=== PATIENT | female | born 1960 | race Caucasian/White ===

== ENCOUNTER 2024-08-14 06:24 | Day surgery (SDC) | payer MEDICARE, BC ==
[~2024-08-14] VITALS: Ht 165.1 cm; Wt 164.2 kg
[~2024-08-14 06:24] MED LIST: AMIT25 PO; ANTIBIOTIC PO; ATORVASTATIN CA20 MG PO; DIAZ5 PO; MECL25 PO; METHI10 PO; OMEP20ER PO; ONDA4 PO; ONDA4ODT MM; TRAM50 PO; TRAZ150T57 PO; TRAZ50 PO
[2024-08-14] MEDS ORDERED: CeFAZolin Sodium 2,000 MG VIAL ONE (06:33)
[2024-08-14] MEDS ORDERED: NS 50 ML IV ONE (06:35)
[2024-08-14] MEDS ORDERED: ASPI81CH (07:00)
[2024-08-14] MEDS ORDERED: MONT10T (07:00)
[2024-08-14] MEDS ORDERED: PRAZ2 (07:00)
[2024-08-14] MEDS ORDERED: Midazolam HCl 1MG / ML 2ML Vial ONE (07:04)
[2024-08-14] MEDS ORDERED: FentaNYL Citrate 50 MCG/ML 2 ML Injection ONE (07:04)
[2024-08-14] MEDS ORDERED: propofoL 20 ML IV ONE (07:04)
[2024-08-14] MEDS ORDERED: Lactated Ringer's 1,000 ML IV ONE ×2 (07:15→08:00)
--- NOTE | 2024-08-14 07:19 | NUR ---
08/14/24 0719 Alison Manley 0.15ML OF EPI (1MG/ML) ADDED TO 0.5% BUPIVACAINE (150MG/30ML) TO MAKE BUPIVACAINE 0.5% WITH EPI 1:200,000 ON FILED
[2024-08-14] MEDS ORDERED: Bupivacaine 0.5% HCl 5 MG/ML 30MLVIAL INJ ONE (07:39)
[2024-08-14] MEDS ORDERED: EPINEPhrine HCl 1 MG/ML 1ML Amp XX ONE (07:40)
[2024-08-14] MEDS ORDERED: Dexamethasone Sod Phos 10 MG/ML 1ML VIAL ONE (07:51)
[2024-08-14] MEDS ORDERED: Ondansetron HCl 2 MG / ML 2ML Vial ONE (07:51)
[2024-08-14] MEDS ORDERED: Ketorolac Tromethamine 30mg Vial ONE (07:51)
[2024-08-14 08:24] VITALS: BP 116/71
[2024-08-14] MEDS ORDERED: TraMADol HCl 50 MG Tab ONE (09:22)
--- NOTE | 2024-08-14 09:47 | NUR ---
08/14/24 0947 Jarret Toyn PT DENIED CP, SOB, DIZZINESS, NAUSEA, AND OTHER CARDIAC SYMPTOMS. NONE WERE OBSERVED. SHE STATES RESTING HR NORMALLY IN 40'S. BASELINE B/P 110'S/60'S. PT REPORTED TOLERABLE 4/10 PAIN UPON D/C. SHE DENIED NAUSEA AND EXPRESSED READINESS TO RETURN HOME.
== END 2024-08-14 09:47 | disposition home or self-care (01) ==
LOC: ORSCSDS 06:24
PROVIDERS: Podiatrist Foot & Ankle Surgery
PROC: 0JBR0ZZ Excision of Left Foot Subcutaneous Tissue and Fascia, Open Approach (ICD-10-PCS; principal; 2024-08-14 07:30)
DX: D17.39 Benign lipomatous neoplasm of skin and subcutaneous tissue of other sites (principal); E78.5 Hyperlipidemia, unspecified; E03.9 Hypothyroidism, unspecified; Z79.82 Long term (current) use of aspirin; Z79.899 Other long term (current) drug therapy
CPT/HCPCS: A9270; J0171; J0690; J1100; J1885; J2250; J2405; J2704; J3010

== ENCOUNTER 2024-11-13 09:41 | Day surgery (SDC) | payer MEDICARE, BC ==
[~2024-11-13] VITALS: Ht 165.1 cm; Wt 74.7 kg
[~2024-11-13 09:41] MED LIST changes: +ASPI81CH; +Bupivacaine 0.5% W/EPI 1:200000 SDV 30 ML Vial ONE; +Lactated Ringer's 1,000 ML IV ONE; +MONT10T; +PRAZ2
[2024-11-13] MEDS ORDERED: CeFAZolin Sodium 2,000 MG VIAL ONE (10:02)
[2024-11-13] MEDS ORDERED: ONDA4ODT (10:29)
[2024-11-13] MEDS ORDERED: Lactated Ringer's 1,000 ML IV ONE (10:30)
[2024-11-13] MEDS ORDERED: ALBU90OI INH (10:32)
[2024-11-13] MEDS ORDERED: Midazolam HCl 1MG / ML 2ML Vial ONE (12:08)
[2024-11-13] MEDS ORDERED: FentaNYL Citrate 50 MCG/ML 2 ML Injection ONE (12:08)
[2024-11-13] MEDS ORDERED: propofoL 20 ML IV ONE (12:08)
[2024-11-13] MEDS ORDERED: Ondansetron HCl 2 MG / ML 2ML Vial ONE (12:47)
[2024-11-13] MEDS ORDERED: Dexamethasone Sod Phos 10 MG/ML 1ML VIAL ONE (12:47)
[2024-11-13 13:10] VITALS: BP 116/61
--- NOTE | 2024-11-13 13:33 | NUR ---
11/13/24 5493 Miguel Mojica DENIES PAIN CURRENTLY, TOLERATING FOOD AND FLUIDS. MIGUEL PRESENT FOR DISCHARGE INSTRUCTIONS
== END 2024-11-13 13:40 | disposition home or self-care (01) ==
LOC: ORSCSDS 09:41
PROVIDERS: Podiatrist Foot & Ankle Surgery
PROC: 0JBN0ZZ Excision of Right Lower Leg Subcutaneous Tissue and Fascia, Open Approach (ICD-10-PCS; principal; 2024-11-13 11:00)
DX: D17.9 Benign lipomatous neoplasm, unspecified (principal); E05.00 Thyrotoxicosis with diffuse goiter without thyrotoxic crisis or storm; E78.5 Hyperlipidemia, unspecified; Z79.82 Long term (current) use of aspirin; J45.909 Unspecified asthma, uncomplicated; Z79.899 Other long term (current) drug therapy
CPT/HCPCS: J0690; J1100; J2250; J2405; J2704; J3010; J7120

== ENCOUNTER 2024-11-17 12:15 | Emergency (ER) | payer MEDICARE, BC ==
[~2024-11-17] VITALS: Ht 165.1 cm; Wt 72.6 kg
[~2024-11-17 12:15] MED LIST changes: +ALBU90OI INH; -Bupivacaine 0.5% W/EPI 1:200000 SDV 30 ML Vial ONE; -Lactated Ringer's 1,000 ML IV ONE; +ONDA4ODT
[2024-11-17 12:57] LABS: BASOPHILS ABSOLUTE AUTO 0.05 K/mm3 (0.00-0.23); BASOPHILS PERCENT AUTO 1 % (0-2); EOSINOPHILS ABSOLUTE AUTO 0.01 K/mm3 (0.00-0.68); EOSINOPHILS PERCENT AUTO 0 % (0-6); Hematocrit 38.3 % (33.0-51.0); Hemoglobin 13.2 g/dL (11.5-16.0); IMMATURE GRAN ABSOLUTE AUTO 0.05 K/mm3 (0.00-0.10); IMMATURE GRAN PERCENT AUTO 1 % (0-1); LYMPHOCYTES ABSOLUTE AUTO 2.35 K/mm3 (0.84-5.20); LYMPHOCYTES PERCENT AUTO 22 % (21-46); MONOCYTES ABSOLUTE AUTO 1.31 K/mm3 (0.16-1.47); MONOCYTES PERCENT AUTO 12 % (4-13); Mean Corpuscular HGB 31.5 pg (26.0-34.0); Mean Corpuscular HGB Conc 34.5 g/dL (31.5-36.5); Mean Corpuscular Volume 91 fL (80-100); Mean Platelet Volume 11.4 fL (9.1-12.4); NEUTROPHILS ABSOLUTE AUTO 7.05 K/mm3 (1.96-9.15); NEUTROPHILS PERCENT AUTO 65 % (41-73); Platelet Count 214 K/mm3 (150-400); RDW Coefficient Variation 12.4 % (11.7-14.2); RDW Standard Deviation 41.3 fL (35.1-46.3); Red Blood Cell Count 4.19 M/mm3 (3.80-5.20); White Blood Cell Count 10.82 K/mm3 (4.00-11.30)
[2024-11-17 13:19] LABS: Albumin, Blood 3.8 g/dL (3.4-5.0); Bilirubin, Total 1.1 mg/dL (0.1-1.0); Bun/Creatinine Ratio 13.9 (12.0-20.0); Calcium, Blood 9.2 mg/dL (8.5-10.1); Creatinine, Blood 0.79 mg/dL (0.40-1.00); Globulin, Blood 3.8 g/dL (2.2-4.0); Potassium, Blood 3.6 mmol/L (3.5-5.5); Total Protein, Blood 7.6 g/dL (6.4-8.2)
[2024-11-17] MEDS ORDERED: Ketorolac Tromethamine 30mg Vial IV ONE (14:15)
[2024-11-17] MEDS ORDERED: Rivaroxaban 10 MG Tab PO ONE (16:25)
[2024-11-17] MEDS ORDERED: XARELTO20 MG PO (16:27)
[2024-11-17 16:45] VITALS: BP 118/65
== END 2024-11-17 17:16 | disposition home or self-care (01) ==
LOC: ER 12:15
PROVIDERS: Student in an Organized Health Care Education/Training Program
DX: I26.99 Other pulmonary embolism without acute cor pulmonale (principal); Z88.8 Allergy status to other drugs, medicaments and biological substances; Z79.899 Other long term (current) drug therapy; Z79.82 Long term (current) use of aspirin
CPT/HCPCS: 71046; 71260; 80053; 84484; 85025; 85379; 93005; 93010; 93971; 96374; 99285-25; A9270; J1885; Q9967